=== PATIENT | male | born 1970 | race African-American/Black ===

== ENCOUNTER 2025-03-09 06:47 | Emergency (ER) | payer SELFPAY ==
[2025-03-09 06:52] VITALS: BP 151/108; PULSE 76; TEMP 36.8; O2SAT 98; BMI 30.6
--- NOTE | 2025-03-09 07:14 | ED_ITS ---
HPI HPI - General Adult General Chief complaint: Abdominal Pain Stated complaint: FLANK PAIN Time Seen by Provider: 03/09/25 07:06 Source: patient Mode of arrival: Wheelchair Limitations: no limitations History of Present Illness HPI narrative: Patient presents to ED complaining of right flank pain which is actually right rib pain. Patient states he fell over a chair and the chair flipped over as well and he jammed his ribs into the side of the chair. He said he could not sleep all night and he has been in a lot of pain since. He did not hit his head no loss of consciousness. He does have a bruise on the right upper arm as well. No hip pain no leg pain. Patient is been ambulatory. He denies any back pain. No neck pain. Patient denies any abdominal pain. He just reports the right sided rib pain. Related Data Previous Rx's ?Medication ?Instructions ?Recorded oxycodone-acetaminophen 5 mg-325 1 tab PO Q6H PRN pain #14 tabs 03/09/25 mg tablet (Percocet) Allergies Allergy/AdvReac Type Severity Reaction Status Date / Time No Known Drug Allergies Allergy Verified 03/09/25 07:04 Opioid HPI Opioid Management Most Recent Opioid Data: Last ED Pain Assessment Today, 08:18 Review of Systems ROS Status of ROS 10 or more systems reviewed and unremark able except as noted in history and below PFSH PFSH Social History Little interest or pleasure in doing things: not at all Feeling down, depressed, or hopeless: not at all Exam Narrative Exam Narrative: General: alert, no acute distress Cardiovascular: regular rate and rhythm, normal peripheral perfusion. Respiratory: Lungs CTA, respirations non labored. Extremities: no deformity, no trauma. Neurological: oriented x 4, LOC appropriate for age. Tenderness to palpation along the right lateral and posterior ribs around ribs 8-9 Constitutional Vital Signs, click to edit/add: Last Vital Signs Temp 98.2 F 03/09/25 06:52 Pulse 76 03/09/25 06:52 Resp 18 03/09/25 06:52 BP 151/108 H 03/09/25 06:52 Pulse Ox 98 03/09/25 06:52 O2 Del Method Room Air 03/09/25 06:52 Course Vital Signs Vital signs: Vital Signs Temperature 98.2 F 03/09/25 06:52 Pulse Rate 76 03/09/25 06:52 Respiratory Rate 18 03/09/25 06:52 Blood Pressure 151/108 H 03/09/25 06:52 Pulse Oximetry 98 03/09/25 06:52 Oxygen Delivery Method Room Air 03/09/25 06:52 Temperature 98.2 F 03/09/25 06:52 Pulse Rate 76 03/09/25 06:52 Respiratory Rate 18 03/09/25 06:52 Blood Pressure 151/108 H 03/09/25 06:52 Pulse Oximetry 98 03/09/25 06:52 Oxygen Delivery Method Room Air 03/09/25 06:52 Medical Decision Making MDM Narrative Medical decision making narrative: X-ray does not show any pneumothorax or obvious fractured rib. Based on physical exam patient has bruised or cracked ribs. He is feeling much better after pain medication. Patient will be sent home with pain medication as well as a lidocaine patch and incentive spirometer. Patient instructed to return to ED if worsening symptoms otherwise follow-up outpatient. Patient comfortable with care plan for home Discharge Plan Discharge Chief Complaint: Abdominal Pain Clinical Impression: Contusion of rib on right side Patient Disposition: Home, Self-Care Time of Disposition Decision: 08:24 Condition: Good Mode of Transportation: Private Vehicle Prescriptions / Home Meds: New oxycodone-acetaminophen [Percocet] 5-325 mg tablet 1 tab PO Q6H PRN (Reason: pain) Qty: 14 0RF Print Language: Latvian Instructions: Rib Contusion (ED) Discharge Date/Time: 03/09/25 08:53
--- NOTE | 2025-03-09 07:17 | PC.NURSE ---
Pain to right rib cage, reports sitting in a chair yesterday and chair collapsed causing patient to fall landing on right side. No swelling redness or bruising present.
[2025-03-09] MEDS: OXYCODONE HCL/ACETAMINOPHEN 5MG/325MG 1 TAB PO (07:20)
[2025-03-09] MEDS: LIDOCAINE 5% PATCH 1 PATCH TOPICAL (08:49)
== END 2025-03-09 08:53 | disposition home or self-care (01) ==
PROVIDERS: Emergency Provider Emergency Medicine
DX: S20.211A Contusion of right front wall of thorax, initial encounter (principal); W18.39XA Other fall on same level, initial encounter
CPT/HCPCS: 71111; 81001; 99283